=== PATIENT | male | born 1965 | race Caucasian/White ===

== ENCOUNTER 2021-06-04 11:55 | Outpatient (CLI) | payer BC | END 2021-06-04 11:56 | disposition home or self-care (01) | LOC: CSHMRI 11:55 | PROVIDERS: ATTEND Family Medicine | DX: M25.562 Pain in left knee (principal); T84.4 Mechanical complication of other internal orthopedic devices, implants and grafts; M25.762 Osteophyte, left knee; M25.862 Other specified joint disorders, left knee; S83.242A Other tear of medial meniscus, current injury, left knee, initial encounter; M17.12 Unilateral primary osteoarthritis, left knee ==